=== PATIENT | female | born 1955 | race Caucasian/White ===

== ENCOUNTER 2017-08-09 12:28 | Emergency (ER) | payer BC ==
--- NOTE | 2017-08-09 14:15 | EDPHY ---
General Time Seen by Provider: 08/09/17 12:53 Narrative: CHIEF COMPLAINT: Back abscess, sent by primary care physician HISTORY OF PRESENT ILLNESS: Patient presents with complaints of right sided back abscess. She says that she was sent here by her PCP. She has had a sebaceous cyst in the same area for nearly 4 years. She says that she has had swelling there but never to the point that she noticed 1 week ago. Became very red and swollen. She also was feeling febrile at home. She was evaluated and her primary care physician office on Tuesday and placed on Keflex. She took this as prescribed with no improvement. She continued have a fever on Tuesday, thus she would back to her primary care office on Tuesday. The physician performed incision and drainage of a changed her Keflex to Bactrim. She has felt no improvement and has increasing pain, thus she contacted their office. Their office recommended she come here. They have communicated here with Dr. Jacob. She has no chest pain or shortness of breath. She does have drainage from the site with packing in place. No other associated complaints or modifying factors REVIEW OF SYSTEMS: Ten systems reviewed and are negative unless otherwise noted in the HPI PCP: Dr. Siu at [facility] SPECIALISTS: None PAST MEDICAL HISTORY: No ongoing diagnoses are medications PAST SURGICAL HISTORY: Appendectomy, oophorectomy, hernia repair SOCIAL HISTORY: Never smoker. Lives and works here independently. FAMILY HISTORY: Noncontributory EXAMINATION General Appearance: Alert, no distress Head: normocephalic, atraumatic Eyes: Pupils equal and round, no conjunctival pallor or injection ENT, Mouth: Mucous membranes moist Neck: Normal inspection, supple, non-tender Respiratory: Lungs are clear to auscultation. No wheezing, rhonchi or crackles Cardiovascular: Regular rate and rhythm. No murmur. Gastrointestinal: Abdomen is soft and nontender Back: Large area of abscess to the right thoracic soft tissue subscapular region. There is packing in place. There is spontaneous drainage. There is surrounding induration and erythema. No crepitus. No midline cellulitis. Neurological: A&O, nonfocal, normal gait Skin: Warm and dry, no rash. Skin changes as above Extremities: Nontender, no pedal edema Psychiatric: Mood and affect normal DIFFERENTIAL DIAGNOSES: Including but not limited to abscess, sebaceous cyst, infected cysts, cellulitis MDM: 1:00 p.m. Right thoracic back abscess versus infected sebaceous cyst. I have anesthetize and explored the area further. The initial incision and drainage was performed and the correct area but I do feel this was too superficial to drain her completely. Dr. Jacob has evaluated this as well and agrees. I will proceed with further incision and drainage. 2:00 p.m. I have performed further incision and drainage with at least 30 mL return of purulence. This was both liquid and semi-solid, consistent with sebaceous cyst infection. The area of swelling is significantly reduced postprocedure. I irrigated the wound with 30 cc of sterile saline. I did place packing in the wound. I dressed the wound with an ABD dressing. She tolerated the procedure very well with minimal pain. We discussed continuation of her Bactrim, but I have increased to 2 pills by mouth twice daily for tonight and tomorrow morning' s dose. I would like her to be seen by primary care physician tomorrow for removal of the packing and re-evaluation of the wound. I do not feel she warrants any imaging or surgical consultation at this time. Dr. Jacob agrees. We discuss pain medication prescription, ED precautions, warm compresses. The patient is feeling much better and discharged home in stable condition. 4:50 p.m. This is an addendum. The patient was already discharged home, but I have just discussed the case with her primary care physician Dr. Siu. I informed her of my further incision and drainage, the change in her medication and my request for her to be re-evaluated tomorrow. She was appreciative of this. PROCEDURE: Incision and Drainage Consent: Verbal Location: Right thoracic cutaneous, subscapular Length: 3 cm Complexity: Complex Anesthesia: Local. 1% lidocaine with epinephrine, 12 mL Procedure description: After time-out and good anesthesia, the area was prepped with Betadine. Using common sterile technique, the area of incision was expanded with a 10. Blade to a total of 3 cm. The area was blunt dissected and all loculations were broken up. The below was expressed with minimal blood loss. The area was then irrigated with 30 cc of sterile saline. I then placed a 1/2 inch iodoform packing. Expressed: 30 cc purulent and solid purulent Wound care: Daily as discussed Follow-up: Tomorrow with primary care physician for packing removal and re- evaluation SUPERVISION: Patient was independently examined, but I discussed the case with my secondary supervising physician Dr. Jacob - History Smoking Status: Never smoked - Objective Vital Signs: Initial Vital Signs Temperature (C) 98.8 F 08/09/17 12:33 Heart Rate 95 08/09/17 12:33 Respiratory Rate 16 08/09/17 12:33 Blood Pressure 128/95 H 08/09/17 12:33 O2 Sat (%) 94 08/09/17 12:33 O2 Delivery Mode Room Air Allergies/Adverse Reactions: Penicillins Allergy (Verified 08/09/17 12:32) Home Medications: Medication Instructions Recorded Doxycycline Hyclate 08/09/17 Sulfamethox/Tmp 800/160 mg 1 tab PO BID 10 Days tab 08/09/17 [Bactrim Ds] oxyCODONE HCL/ACETAMINOPHEN 1 each PO Q4-6PRN PRN #7 tablet 08/09/17 [Percocet 5-325 mg Tablet] Medications Given: Discontinued Medications Oxycodone/Acetaminophen (Percocet 5/325) 1 tab PO EDNOW ONE Stop: 08/09/17 14:26 Last Admin: 08/09/17 14:53 Dose: 1 tab Departure - Departure Disposition: Home, Routine, Self-Care Clinical Impression: Infected sebaceous cyst of skin, Back abscess Condition: Good Instructions: Abscess (ED), Cyst (ED) Additional Instructions: 1. Increase Bactrim to 2 pills by mouth twice daily until seen by primary care physician 2. Daily wound care as discussed 3. Follow up with primary care physician tomorrow morning for wound re- evaluation and packing removal 4. Percocet pain medication as prescribed as needed 5. ED precautions as discussed Referrals: Thu Siu MD [Primary Care Provider] - As per Instructions Prescriptions: oxyCODONE HCL/ACETAMINOPHEN [Percocet 5-325 mg Tablet] 1 each PO Q4-6PRN PRN #7 tablet PRN Reason: Pain, Breakthrough Sulfamethox/Tmp 800/160 mg [Bactrim Ds] 1 tab PO BID 10 Days tab
[2017-08-09] MEDS ORDERED: OXYCODONE/APAP 5/325 TAB PO ONE (14:25)
[2017-08-09 14:55] VITALS: BP 124/76
== END 2017-08-09 14:57 | disposition home or self-care (01) ==
PROC: 0H96XZZ Drainage of Back Skin, External Approach (ICD-10-PCS; principal; 2017-08-09)
DX: L02.212 Cutaneous abscess of back [any part, except buttock and flank] (principal); L72.3 Sebaceous cyst